=== PATIENT | male | born 1970 | race Caucasian/White ===

== ENCOUNTER 2018-06-18 06:03 | Emergency (ER) | payer OTHER ==
[2018-06-18] MEDS: KETOROLAC 30 MG INJ IM (07:22)
[2018-06-18] MEDS: HYDROCODONE/APAP (10/325) TAB PO (07:22)
== END 2018-06-18 07:40 | disposition home or self-care (01) ==
LOC: FTE 06:03
DX: S20.229A Contusion of unspecified back wall of thorax, initial encounter (principal); B02.9 Zoster without complications; R07.81 Pleurodynia; W07.XXXA Fall from chair, initial encounter; Y92.9 Unspecified place or not applicable
CPT/HCPCS: 71046; 72072; 96372; 99284-25